=== PATIENT | female | born 1980 | race Two or more races ===

== ENCOUNTER 2025-07-17 11:20 | Emergency (ER) | payer BC, SELFPAY ==
[2025-07-17 11:23] VITALS: BP 154/90
[2025-07-17 11:44] LABS: Hematocrit 36.7 % (37.0-47.0); Hemoglobin 12.7 g/dL (12.0-16.0); Mean Corp Hgb Conc. 34.6 g/dL (33.0-37.0); Mean Corpuscular Volume 90.6 fL (81.0-99.0); Nucleated Red Blood Cells % 0 %; Platelet Count 254 10^3/uL (130-400); Red Cell Dist. Width 11.5 % (11.5-14.5)
[2025-07-17 12:14] LABS: HCG, Serum Qualitative Screen Negative
[2025-07-17 12:22] LABS: ALT (SGPT) 27 U/L (0-35); AST (SGOT) 36 U/L (14-36); Albumin 4.4 g/dl (3.5-5.0); Alkaline Phosphatase 56 U/L (38-126); Blood Urea Nitrogen 6 mg/dl (7-17); Calcium 9.1 mg/dl (8.4-10.2); Carbon Dioxide 24 mmol/L (22-30); Chloride 107 mmol/L (98-107); Glucose 126 mg/dl (70-99); Potassium 3.7 mmol/L (3.5-5.1); Sodium 140 mmol/L (135-145); Total Protein 7.7 g/dl (6.3-8.2); eGFR > 60.00
--- NOTE | 2025-07-17 13:44 | ED.GENMED ---
Addendum entered and electronically signed by Omaira Abarca PA-C 07/20/25 14:05:
Wound culture was group A strep. Patient is on Keflex and doxycycline would be adequate treatment for group A strep though there could be some resistance. I did call the patient she seemed to suggest that there was a new 'pus pocket' next to the
packing area. Fortunately there were pictures in the chart and I was able to see that there was yellowish discoloration to the fingertip that she probably is noticing. I did asked the patient to come to the emergency department where I could
visualize this before deciding whether she needed to check back in or switch her antibiotics. When I remove the dressing it looks like it is improved.there are some tissue at the tip that is not looking like it is concerning for infection. I
did show a picture to him Dr. Brewer and he agreed. He asked me to pull the packing out and applying bacitracin and to have the patient start diluted hydroperoxide soaks twice a day and he will see her in 2 days. Patient verbalized understanding
to continue the antibiotics and do this treatment plan
Original Note:
History of Present Illness
General
Chief Complaint: Skin Problem
Source: patient
Exam Limitations: none
Time Seen by Provider: 07/17/25 13:32
Nursing documentation reviewed up to this point in time: agreed with
History of Present Illness
History of Present Illness:
45-year-old female with history as noted presents to the ER for evaluation of right thumb pain. Patient reports that Monday night she was biting her right thumbnail and Monday morning she woke up with significant pain and swelling, discoloration
of the tip of the right thumb and that her symptoms have progressed since then. She says that she did see her primary doctor Monday after onset of symptoms because they were rather severe and she was prescribed Keflex and has been taking this for
the past 5 days but again her symptoms have progressed, not improved. She ultimately went to [facility] orthopedic office in [place] and was seen by the PA there and was diagnosed with a felon and was recommended to come to the ER for further
treatment and evaluation. Aside from thumb pain and swelling, discoloration she has not had other symptoms such as fever, chills. No other acute complaints.
Review of Systems
Review of Systems
All Other Systems: ROS reviewed and negative except as documented in HPI and ROS
Constitutional: Denies fever
Musculoskeletal: Reports other (Thumb pain and swelling)
Neurological: Denies headache
Phy Exam
Physical Exam
Physical Exam:
General: Well appearing and non-toxic
HEENT: protecting airway
Neck: appears supple
CV: No evidence of cyanosis
Resp: No accessory muscle use
Abd: Non-distended
Extremities: Patient has swelling, erythema with pale discoloration of the pad of the right thumb with fluctuance and tenderness consistent with felon
Neuro: Alert
Psych: Normal affect
PICTURE OF THUMB S/P I&D AND PACKING:
Scores
Heart Failure Risk
Heart Failure Risk Score: Not Applicable
Heart Score for Chest Pain Patients
STEMI patient?: Not applicable
Withdrawal Assessment of Alcohol
Withdrawal Assessment Completed?: Not applicable
Course
Orders/Labs/Results
Orders:
Orders
07/17/25 11:29
Test Result ONCE
07/17/25 11:35
Complete Blood Count/With Diff Urgent
Comprehensive Metabolic Panel Urgent
HCG, Serum Qualitative Screen Urgent
Blood Culture Urgent
JODEE Source: Blood/Venous
Specimen Description:
07/17/25 14:37
Wound Culture [Wound/Abscess/Other Culture] Urgent
JODEE Source: Finger
Specimen Description: Right
Date Specimen was Collected: 07/17/25
Time Specimen was Collected: 14:36
07/17/25 14:41
Doxycycline [Vibramycin] 100 mg PO NOW STA
Abnormal Lab Results
07/17/25
11:35
WBC 4.3 L 10^3/uL
(4.8-10.8)
RBC 4.05 L 10^6/uL
(4.20-5.40)
Hct 36.7 L %
(37.0-47.0)
MCH 31.4 H pg
(27.0-31.0)
BUN 6 L mg/dl
(7-17)
Creatinine 0.4 L mg/dL
(0.6-1.0)
Glucose 126 H mg/dl
(70-99)
07/17/25 11:35
07/17/25 11:35
Vital Signs
Initial and Last Documented VS:
Initial Vital Signs
Temp Pulse Resp BP Pulse Ox
36.7 C 96 16 154/90 98
07/17/25 11:23 07/17/25 11:23 07/17/25 11:23 07/17/25 11:23 07/17/25 11:23
Last Documented Vital Signs
Temp Pulse Resp BP Pulse Ox
36.7 C 96 16 154/90 98
07/17/25 11:23 07/17/25 11:23 07/17/25 11:23 07/17/25 11:23 07/17/25 13:49
Procedures
Incision/Drainage/Joint Aspiration
Right First Finger:
Anethesia: 1% Lidocaine (digital block)
Preparation: cleaned with Betadine
Type of procedure: incise and drain
Nature of site: abscess
Description of abscess: complex
Loculations broken up: No
How much fluid was obtained?: small amount
Fluid description: purulent and blood tinged
Treatment: packed with gauze and antibiotics started
MDM/Problems Addressed
Differential Diagnosis Includes:
Felon, paronychia
MDM/Problems Addressed:
45-year-old female presents to the ER sent by [facility] orthopedic office with right thumb felon. She has been on antibiotics but symptoms not improving. She had basic lab work sent off which showed no clinically significant abnormalities. Case was
discussed with [facility] orthopedist who recommended bedside I&D by us here in the ER. She apparently already had reassuring x-rays in the orthopedic office today.
Incision and drainage performed at bedside, purulent drainage swab is sent for culture. Patient reports that she actually has an appoint with Dr. Brewer on Monday�I called Dr. Brewer to confirm follow-up, we will plan to broaden her antibiotic
coverage. I did offer the patient admission to have the area observed on antibiotics given that she has already tried Keflex for a few days but I suspect lack of improvement was due to abscess rather than antibiotic failure. Patient prefers to
avoid hospitalization. Instructed patient regarding wound care/dressing changes and we spoke about return precautions including if it appears worse at any point or if symptoms are not improving, otherwise she will follow-up in the orthopedic office
as scheduled in a few days. All questions answered.
*Pulse Oximetry
SaO2: 98
Oxygen Mode of Delivery: Room air
Patient hypoxic: no (98%)
*Critical Care Note
Total Time (30-74mins, 75-104mins- exclusive of procedures): Not Applicable
Data Reviewed
Source: patient
Patient Management
Discussion with other providers: Swatch Clerk (Discussed with orthopedics)
Escalation/DeEscalation of care consider admission/obs:
Considered/offered admission�shared decision making opted for trial of outpatient treatment after I&D here
ED Attending Note
-
Portions of this chart may have been created with voice recognition software.� Occasional wrong word or��sound alike� substitutions may have occurred due to the inherent limitations of voice recognition software.
Discharge Plan
Departure
Patient Disposition: Home (Routine Discharge)
Date of Disposition: 07/17/25
Time of Disposition: 14:41
Patient with high blood pressure during this ER visit?: Yes
Discharge Problem:
Felon
Instructions: Common finger infections - ED (DC)
Prescriptions:
New
doxycycline hyclate 100 mg tablet
100 mg PO BID 10 Days Qty: 20 0RF
Referrals:
Moses Brewer MD [Active, Orthopedics] - Keep scheduled appt
Activity Restrictions/Additional Instructions:
You should continue your current Keflex but you should also take the second antibiotic (doxycycline) that you are prescribed for additional antibiotic coverage. You should perform dressing changes as we discussed and ifyou notice that your symptoms
are worsening or if you develop new symptoms please return to the ER to be reassessed right away. Otherwise you should follow-up as scheduled with the orthopedist on Monday to have dressing change and packing removed and to have the area
definitively reassessed.
Thank you for visiting the Emergency Department at [facility].
1. Please schedule a follow up appointment as directed. Call first thing tomorrow morning to make an appointment.
2. If indicated, please take your medications as instructed and indicated on discharge paperwork.
3. If any of your symptoms do not improve, or persist, or become more severe within 6-12 hours, please return to the emergency department for further care.
4. Please return to the emergency department if you develop a headache, neck pain/stiffness, fever greater than 100.4F, chest pain, shortness of breath, persistent nausea, vomiting, slurred speech, difficulty walking, numbness/tingling, weakness,
signs of infection or any other symptoms that are worrisome to you.
Please call [phone] if you have any questions.
Interventions
Interventions:
*Risk Screen - Suicide (C-SSRS) Last Done: 07/17/25 11:23
Discharge Date and Time
Print Language: SAMOAN
[2025-07-17] MEDS: VIBRAMYCIN 100 MG PO (14:50)
== END 2025-07-17 15:04 | disposition home or self-care (01) ==
LOC: EMR 11:20
PROVIDERS: Student in an Organized Health Care Education/Training Program; EMERGENCY PHYSICIAN Emergency Medicine; FAMILY PHYSICIAN Student in an Organized Health Care Education/Training Program
DX: L03.011 Cellulitis of right finger (principal); B95.0 Streptococcus, group A, as the cause of diseases classified elsewhere
CPT/HCPCS: 99283; 10060; 80053; 84703; 85025; 87040; 87070; 87077; 87147; 87205